=== PATIENT | female | born 1950 | race Caucasian/White ===

== ENCOUNTER 2017-04-03 09:59 | Observation (INO) | payer MEDICARE, MEDICAID ==
[~2017-04-03] VITALS: Ht 161.3 cm; Wt 103.1 kg
[2017-04-03] VITALS (9 sets, daily range): BP systolic 149–189; BP diastolic 57–74; PULSE 58–73; RESP 18–20; O2SAT 98–100
[~2017-04-03 09:59] MED LIST: ALBU8.5H2 IH; ASPI-628 PO; CHOL200025 PO; FENO48TA4 PO; GABA600T2 PO; INSU100I SUBQ; INSU100I13 SUBQ; IPRA0.2S51 IH; LEVO50TA6 PO; LORA1TAB PO; LOSA50TA37 PO; MAGN400C PO; MECL-107 PO; MEDICAL MARIJUANA IH; MELA5TAB14 PO; METF500T4 PO; OMEP40CA36 PO; OXYC1TAB24 PO; PIOG45TA PO; ROSU5TAB PO; [UNRECOGNIZED DRUG - CODE] PO; vitamin b12 INJ
[2017-04-03 10:28] LABS: BASOPHILS % (AUTO) 0.5 % (0-3); EOSINOPHILS % (AUTO) 1.1 % (0-5); MONOCYTES % (AUTO) 7.4 % (4-12); Mean Corpuscular Hemoglobin 29.2 pg (27.0-35.0); Mean Corpuscular Volume 87.5 fL (81-100); Platelet Count 185 bil/L (150-400)
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
[2017-04-03] MEDS ORDERED: Nitroglycerin 2% 1 Gm Ointment TOPICAL ONE (10:36)
[2017-04-03] MEDS ORDERED: Nitroglycerin 2% 1 Gm Ointment TOPICAL SCH (10:40)
--- NOTE | 2017-04-03 11:02 | DRSVH ---
PROCEDURE: X-RAY CHEST ONE VIEW, PORTABLE ([id number]) INDICATIONS: sob TECHNIQUE: One view of the chest was acquired. COMPARISON: [facility], CR, CHEST 2VW, 06/30/2014, 12:11. [facility], CR, CH EST 1VW (PORTABLE), 04/07/2014, 12:21. FINDINGS: Surgical changes and devices: None. Lungs and pleura: No pleural effusions or pneumothorax. Lungs are clear. Mediastinum: Mediastinal contours appear normal. Heart size is normal. Bones and chest wall: No suspicious bony lesions. Overlying soft tissues appear unremarkable. IMPRESSION: Mildly reduced inspiratory volume, source of shortness of breath is not seen. Dictated by: Magen Rodriguez M.D. on 04/03/2017 at 11:00 Approved by: Magen Rodriguez M.D. on 04/03/2017 at 11:00
[2017-04-03] MEDS ORDERED: GABA-502 PO (11:35)
[2017-04-03] MEDS ORDERED: PIOG15TA21 PO (11:35)
[2017-04-03] MEDS ORDERED: LORA10CA PO (11:42)
[2017-04-03] MEDS ORDERED: FOLI-89 PO (11:42)
[2017-04-03] MEDS ORDERED: FERR325C PO (11:42)
[2017-04-03] MEDS ORDERED: [UNRECOGNIZED DRUG - CODE] PO (11:42)
[2017-04-03] MEDS ORDERED: CYCL1DRO OP (11:42)
[2017-04-03] MEDS ORDERED: SODI15DR6 BOTH_EYES (11:42)
[2017-04-03] MEDS ORDERED: Multivit-Miner-Folic Acid-Iron Tablet PO SCH ×2 (12:00→17:30)
[2017-04-03 12:33] LABS: TROPONIN T < 0.010 ug/L (0.0-0.011)
[2017-04-03 12:36] LABS: Magnesium 1.3 mg/dL (1.6-2.6)
[2017-04-03] MEDS ORDERED: Magnesium Sulf 2 Gm/50mL Water 2 GM in IV Premix 1 EACH IV ONE (12:45)
[2017-04-03] MEDS ORDERED: Alum-Mag Hydrox-Simeth 30 mL Suspension PO PRN ×2 (13:30→14:55)
[2017-04-03] MEDS ORDERED: Ondansetron 2 mg/mL 2 mL Inj IVPUSH PRN ×2 (13:30→14:55)
[2017-04-03] MEDS ORDERED: Insulin ASPART 70/30 FlexPen 300 Unit/3 mL Inj SUBQ ONE (13:40)
[2017-04-03] MEDS ORDERED: ASPI81TA3 PO (13:49)
[2017-04-03] MEDS ORDERED: BUPR150T12 PO (13:49)
[2017-04-03] MEDS ORDERED: MECL-114 PO (13:50)
[2017-04-03] MEDS ORDERED: Atropine 1 mg/10 mL (Code) Syringe IVPUSH PRN (14:55)
[2017-04-03] MEDS ORDERED: Senna-Docusate 8.6-50 mg Tablet PO PRN (14:55)
[2017-04-03] MEDS ORDERED: Polyethylene Glycol (PEG) 17 Gm Powder PO PRN (14:55)
[2017-04-03] MEDS ORDERED: Dextrose 10% 250 ML IV PRN (15:05)
--- NOTE | 2017-04-03 15:20 | PCM.HPMED ---
Subjective Date of Service April 03, 2017 Primary Provider: Admitting Physician: Karime Tomas MD Primary Care Physician: Magen Pizarro DO Attending Physician: Karime Tomas MD Chief Complaint: Shortness of breath and chest pain History of Present Illness: This past week has been quite stressful as she is going to court to remove someone from her home. When she is most stressed she develops 10 out of 10 chest pain and this resolves after when or occasionally 2 sublingual nitroglycerin tablets. Prior to this past week she had been using nitroglycerin less than once per month. These rest recent chest pains are not coming on with activity. Then this morning she was awakened at 3:30 by shortness of breath. She removed her CPAP and walked to the kitchen and back and shortness of breath improved and she was able to sleep. She was then awakened from sleep again at 0540 morning with shortness of breath. As usual she is sleeping with the head of the bed elevated +2 kg. She tried her inhaler but no relief. She later tried her nebulizer but still no relief. Her caregiver arrived at 0825 and she got dressed and they went to urgent care clinic. By the time she she had 8 out of 10 left mid chest pressure. She says they did an EKG and gave her aspirin and then had an ambulance bring her to the emergency department. She is not sure if she received sublingual nitroglycerin. By arrival in the emergency department and the chest pressure was down to a 3 out of 10 in severity. She then received Nitrol paste and since then her discomfort is relieved although she does now have a headache. Review of Systems: she had a sinus infection for which she was prescribed amoxicillin 2 weeks ago and symptoms have improved. She has a small patch of rash on the anterior lower right leg for which she has received some corticosteroid cream but it has not been helping. Does occasionally get pedal edema right worse than left but has not been recently any different. Otherwise review of systems is unremarkable except as in history of present illness. Allergies Coded Allergies: milnacipran (Unverified Adverse Reaction, Severe, Agitation, 02/03/15) codeine (Verified Adverse Reaction, Intermediate, sedation, 02/03/15) duloxetine (Verified Adverse Reaction, Intermediate, Dizziness, 02/03/15) hydromorphone (Verified Adverse Reaction, Intermediate, Nausea,Vomiting, 4 /2/15) lisinopril (Verified Adverse Reaction, Intermediate, facial swelling, ) pregabalin (Verified Adverse Reaction, Intermediate, dizziness, 02/03/15) morphine (Verified Adverse Reaction, Mild, doesn't like how it makes her feel - sedation, n/v, 02/03/15) Home Medications Albuterol inhaler when necessary Nebulizer when necessary Aspirin 81 mg daily EpiPen 300 mg 3 times a day Lantus insulin 35 units at bedtime NovoLog before meals, 9 before breakfast, 5 before lunch, 8 before dinner and then these are adjusted by sliding scale (Copy of the sliding scale which is somewhat complicated was given to pharmacist who will enter it in her medication orders) Levothyroxine 50 g daily losartan 50 mg daily (has taken this today) metformin 500 mg twice a day Prilosec 40 mg daily Actos 15 mg daily Crestor 5 mg daily Flovent 110, 2 puffs twice daily Incruse 1 puff daily Fosamax weekly Restasis 0.5 and drop each eye every 12 hours NOEMY 128/5 1 drop each eye at bedtime PMH Arteriosclerotic coronary artery disease S/P 3 drug-eluting stents to RCA in 2005 following an IN Hyperlipidemia. Hypertension. Osteoporosis. Fibromyalgia. Asthma/COPD Atrial fibrillation (but EKG with NSR today) Low back pain. Diabetes mellitus. History of diverticulitis. Depression. Anxiety/stress reaction. GERD. Irritable bowel disease. Menorrhagia. Mild renal insufficiency, chronic stage III. Hypothyroidism Choledococholelithiasis. Surgical History Appendectomy in 2014 Total hysterectomy 1979 Tubal ligation 1974 Sinus surgery 3 in 1979 Carpal tunnel release 1989 Right hip surgery 2012 Left ankle surgery with ganglion cyst removal 3 in 2012 Family History Brother with IN Brother with ankylosing spondylitis Father of prostate cancer Mother and maternal grandmother with arrhythmias but no IN Maternal aunt with skin cancer Paternal uncle with leukemia Social History Hx Alcohol Use: Yes (rare) Hx Substance Use: Yes (legal marijuana each bedtime) Hx Tobacco Use: Yes Smoking Status: Current Every Day Smoker, Former Smoker (crit December 2016) Additional Information , lives with , and son and has caregiver for part of the day. Has POLST Exam Vital Signs Vital Sign - Last Date Time Temp Pulse Resp B/P Pulse Ox O2 Delivery O2 Flow Rate FiO2 04/03/17 14:15 36.6 65 18 177/65 99 Room Air Exam General: Alert and oriented, no acute distress HEENT: Unremarkable Neck: Carotids 2+, no JVD Heart: Regular Lungs: Clear Abdomen: Soft, non-tender Extremities: No pedal edema Lab and Diagnostics Result Diagram: 04/03/17 1025 04/03/17 1025 X-Rays, CTs and MRIs Chest x-ray with no acute abnormality 12-lead ECG Normal sinus rhythm, no acute ischemic changes seen. Assessment & Plan 67-year-old woman with known coronary artery disease, history of past IN and stents, now presents with 2 episodes of shortness of breath awakening her from sleep early this morning, also increased nitroglycerin use the past week due to increased stress. # Awakening with shortness of breath, this does not appear to be CHF or her COPD /asthma. Concern is that it may be an anginal equivalent especially as she did develop chest pressure and eating and has had significant increase in her nitroglycerin use this past week - Monitor overnight on telemetry - Serial troponin - So she is unable to walk on treadmill so will order a nuclear medicine with pharmacological stress for tomorrow if troponins negative -Continue her aspirin - Continue the nitro paste - Heart rate is around 60 so no beta santy given, especially if she is having stress test tomorrow # Hypertension not well controlled but may be due to her anxiety - We will recheck a bit later this afternoon as it may have improved once she is able to relax in her room, if not consider additional medication, especially in the face of possible increasing angina # Type II diabetes mellitus - Because she will likely be nothing by mouth for tomorrow's cardiac chest pain will decrease her Lantus this time from 35 units to 20 units - Continue her usual NovoLog sliding scale, because it is quite complicated the pharmacist is entering this as well as her Lantus and associated orders # Other chronic medical problems appear stable, continue usual medications Karime Tomas MD April 03, 2017 15:20
[2017-04-03] MEDS: Nitroglycerin 2% 1 Gm Ointment TOPICAL SCH ×2 (15:30→20:30)
[2017-04-03 15:42] LABS: Creatine Kinase 87 U/L (21-215)
[2017-04-03] MEDS ORDERED: SODIUM CHLORIDE 5% BOTH_EYES PRN (16:40)
[2017-04-03] MEDS: Insulin LISPRO Individual-Dose Scale SUBQ SCH ×2 (17:48→22:00)
[2017-04-03] MEDS: Sodium Chloride LOK Flush 10 mL Syringe IVFLUSH SCH (17:48)
[2017-04-03] MEDS: 0.9% Sodium Chloride 1,000 ML IV SCH (17:49)
[2017-04-03] MEDS ORDERED: ALBU2.5V4 INHALATION (18:26)
[2017-04-03] MEDS ORDERED: UMEC62.5 IH (18:26)
[2017-04-03] MEDS ORDERED: FLUT12AE8 IH (18:26)
[2017-04-03] MEDS ORDERED: ALBU18HF INH (18:26)
--- NOTE | 2017-04-03 19:00 | NUR ---
Case Management: YISSEL explained to patient at 1810, all questions answered. Signed original placed in chart, copy given to patient. Pt refused the Medicare Part D Drug info. Antonina Ha RN
[2017-04-03] MEDS ORDERED: Albuterol 2.5 mg/3 mL Inhalation Solution NEB PRN (20:00)
[2017-04-03] MEDS ORDERED: Ipratropium 0.02% 0.5 mg/2.5 mL Inhalation Solution NEB PRN (20:30)
[2017-04-03] MEDS: Cyclosporine (Restasis) 1 DROP BOTH_EYES SCH (20:30)
[2017-04-03] MEDS ORDERED: Insulin GLARgine 100 Unit/mL Syringe SUBQ SCH (21:00)
[2017-04-03 21:30] LABS: Creatine Kinase 66 U/L (21-215)
[2017-04-03] MEDS: buPROPion SR 150 mg ER12 Tablet PO SCH (21:32)
[2017-04-04] VITALS (7 sets, daily range): BP systolic 155–188; BP diastolic 65–72; PULSE 57–65; RESP 18; O2SAT 97–98
[2017-04-04] MEDS: Sodium Chloride LOK Flush 10 mL Syringe IVFLUSH SCH ×2 (00:30→12:24)
[2017-04-04] MEDS: Nitroglycerin 2% 1 Gm Ointment TOPICAL SCH ×4 (00:30→12:30)
[2017-04-04] MEDS ORDERED: Pantoprazole 40 mg ER24 Tablet PO SCH (06:30)
[2017-04-04 06:34] LABS: BASOPHILS % (AUTO) 0.5 % (0-3); EOSINOPHILS % (AUTO) 2.5 % (0-5); MONOCYTES % (AUTO) 9.7 % (4-12); Mean Corpuscular Hemoglobin 28.6 pg (27.0-35.0); Mean Corpuscular Volume 88.5 fL (81-100); NEUTROPHILS % (AUTO) 56.3 % (40-74); Platelet Count 162 bil/L (150-400)
[2017-04-04] MEDS: 0.9% Sodium Chloride 1,000 ML IV SCH (06:37)
[2017-04-04 06:55] LABS: Magnesium 1.6 mg/dL (1.6-2.6)
[2017-04-04] MEDS ORDERED: Omega-3 Fatty Acids 1,000 mg Capsule PO SCH (08:30)
[2017-04-04] MEDS: Cyclosporine (Restasis) 1 DROP BOTH_EYES SCH (08:30)
--- NOTE | 2017-04-04 09:07 | NUR ---
Off to [facility] Pt off unit on wc, on RA, IV-SL for chem stress test. Pt denies pain. tele made aware. Addendum: 04/04/17 at 1219 by LISANDRA ALVES RN Pt back to unit at 1150. Denies pain. VSS. back on tele.
[2017-04-04] MEDS: Insulin LISPRO Individual-Dose Scale SUBQ SCH ×2 (12:00→12:23)
[2017-04-04] MEDS: buPROPion SR 150 mg ER12 Tablet PO SCH (12:22)
--- NOTE | 2017-04-04 12:36 | NUR ---
BG-lunch Pt refused to have AC BG checked at lunch time d/t having had a snack in CV[facility] post test. 4 units given still, per orders. Verified by Genia Gilliam RN.
--- NOTE | 2017-04-04 14:39 | PCM.DC.MED ---
Discharge Summary Date of Service Apr 04, 2017 Dates of Hospitalization Date of Hospital Admission April 03, 2017 at 13:35 Date of Discharge: Apr 04, 2017 Providers: Admitting Physician: Karime Tomas MD Primary Care Physician: Magen Pizarro DO Attending Physician: Karime Tomas MD Diagnosis at Time of Discharge Diagnosis at Time of Discharge Acute shortness of breath, noncardiac Hypertension Diabetes mellitus type II Procedures XRay, CTs & MRIs Chest x-ray with no acute abnormality ECG 12 Lead Normal sinus rhythm, no acute ischemic changes seen. Other Diagnostics PROCEDURE: 1 DAY PHARMACOLOGICAL STRESS TEST Rest and pharmacological stress myocardial perfusion SPECT with gated imaging and ejection fraction Left ventricle function: Gated images demonstrate normal left ventricular wall thickening. No segmental wall motion abnormalities. On visual inspection, no transient ischemic dilation. Left ventricle resting end diastolic volume is 109 mL. Left ventricle stress ejection fraction is 65%; normal range is above 45%. Resting LV ejection fraction 63%. Myocardial perfusion: Stress supine, resting supine images were compared to each other. Please note that this patient does not have any prone images. The patient has predominantly fixed, small-sized, mildly decreased perfusion of distal anterior wall, extending into the distal anteroseptum as well as heterogeneous mildly decreased perfusion of basal inferior wall and inferoapex. I do not see any obvious reversible ischemia. IMPRESSION: 1. No obvious reversible ischemia. 2. Patient has above-mentioned predominantly fixed perfusion defect. Those segments are moving normally. They have preserved contractility. It goes against the diagnosis of previous transmural myocardial infarction. The patient has a breast shadow as well as increased subdiaphragmatic activity. Likely we are dealing with breast tissue as well as diaphragmatic tissue attenuation artifact causing above-mentioned fixed defect. This patient does not have any prone images. Her weight is 226 pounds. She had perfusion study in April 2014. At that time also patient has fixed apical perfusion defect. On stress test EKG I do not see any obvious pathological Q-waves suggestive of previous transmural myocardial infarction. However, one cannot rule out entirely possibility of small nontransmural myocardial infarction in those areas. Clinical correlation is recommended. Dictated by: Rajan Horton M.D. on 04/04/2017 at 14:16 Brief History As per admission history of present illness by admitting physician, " This past week has been quite stressful as she is going to court to remove someone from her home. When she is most stressed she develops 10 out of 10 chest pain and this resolves after when or occasionally 2 sublingual nitroglycerin tablets. Prior to this past week she had been using nitroglycerin less than once per month. These rest recent chest pains are not coming on with activity. Then this morning she was awakened at 3:30 by shortness of breath. She removed her CPAP and walked to the kitchen and back and shortness of breath improved and she was able to sleep. She was then awakened from sleep again at 0540 morning with shortness of breath. As usual she is sleeping with the head of the bed elevated +2 kg. She tried her inhaler but no relief. She later tried her nebulizer but still no relief. Her caregiver arrived at 0825 and she got dressed and they went to urgent care clinic. By the time she she had 8 out of 10 left mid chest pressure. She says they did an EKG and gave her aspirin and then had an ambulance bring her to the emergency department. She is not sure if she received sublingual nitroglycerin. By arrival in the emergency department and the chest pressure was down to a 3 out of 10 in severity. She then received Nitrol paste and since then her discomfort is relieved although she does now have a headache. " Hospital Course # Awakening with shortness of breath, this does not appear to be CHF or her COPD /asthma. Concern is that it may be an anginal equivalent especially as she did develop chest pressure and eating and has had significant increase in her nitroglycerin use this past week - Monitored overnight on telemetry without acute events demonstrated - Serial troponin were unremarkable - Home medications continued heart rate was stable of 60s. - Patient was noted to be stable overnight, demonstrated no recurrence of chest pains or shortness of breath. Following cardiac stress test in a.m. patient was able to walk laps around the hospital floor without exacerbation of symptoms. I react stress test did demonstrate some fixed defects in the apical region however no reversible changes and overall was a low risk study. Patient was relieved by findings discharged home with no acute changes in medication regime. - Follow-up with primary care doctor in 1-2 weeks for further evaluation and discussion of hospital stay. # Hypertension not well controlled but may be due to her anxiety - Blood pressure remained elevated in sub-optimal control, especially in the setting of known heart disease, improved BP control is needed - Pt's Losartan increased to 100mg from 50mg with plan to FU in 1-2 weeks. Pt will continue to monitor BP and will consider FU lab studies with increased dosage to monitor renal and electrolyte levels. # Type II diabetes mellitus -Stable during hospital stay patient restarted on home medications at discharge Exam Vital Signs (Last) Date Time Temp Pulse Resp B/P Pulse Ox O2 Delivery O2 Flow Rate FiO2 04/04/17 13:46 36.7 57 18 158/72 97 Room Air Test 04/03/17 10:25 04/03/17 20:32 04/04/17 06:20 Hemoglobin A1c 5.9% (4.8-5.6) Total Bilirubin 0.2mg/dL (0.0-1.2) Aspartate Amino Transf (AST/SGOT) 14U/L (0-50) Alanine Aminotransferase (ALT/SGPT) 13U/L (0-32) Alkaline Phosphatase 65U/L (25-165) Total Protein 7.2g/dL (6.4-8.4) Albumin 3.9g/dL (3.4-5.0) Thyroid Stimulating Hormone (TSH) 1.970uIU/mL (0.450-4.500) Total Creatine Kinase 66U/L (21-215) Creatine Kinase MB 1.8ng/mL (0.0-5.3) Creatine Kinase MB % % (0.0-5.0) Troponin T 0.010ug/L (0.0-0.011) White Blood Count 6.4th/mm3 (3.8-10.1) Red Blood Count 3.92mil/mm3 (3.90-5.20) Hemoglobin 11.2g/dL (12.0-15.6) Hematocrit 34.7% (35.0-46.0) Mean Corpuscular Volume 88.5fL (81-100) Mean Corpuscular Hemoglobin 28.6pg (27.0-35.0) Mean Corpuscular Hemoglobin Concent 32.3% (32.0-37.0) Red Cell Distribution Width 14.7% (12.3-15.4) Platelet Count 162bil/L (150-400) Neutrophils (%) (Auto) 56.3% (40-74) Lymphocytes (%) (Auto) 30.7% (14-46) Monocytes (%) (Auto) 9.7% (4-12) Eosinophils (%) (Auto) 2.5% (0-5) Basophils (%) (Auto) 0.5% (0-3) Sodium Level 144mEq/L (134-144) Potassium Level 4.0mEq/L (3.5-5.2) Chloride Level 107mEq/L (97-108) Carbon Dioxide Level 23mmol/L (18-29) Blood Urea Nitrogen 23mg/dL (8-27) Creatinine 0.93mg/dL (0.57-1.00) Estimat Glomerular Filtration Rate 86mL/min (>59) Glucose Level 162mg/dL (60-99) Calcium Level 8.7mg/dL (8.5-10.1) Magnesium Level 1.6mg/dL (1.6-2.6) Triglycerides Level 200mg/dL (0-149) Cholesterol Level 102mg/dL (100-199) LDL Cholesterol, Calculated 34.000mg/dL (0-99) VLDL Cholesterol 40.000mg/dL HDL Cholesterol 28mg/dL (>39) Cholesterol/HDL Ratio 3.64 (0.0-4.4) General: Alert, Oriented X3, Cooperative, No Acute Distress Mouth: Mucous Membr Moist/Brea Chest & Lungs: Clear to auscultation & percussion Cardiovascular: Regular Rate/Rhythm Extremities: No cyanosis/clubbing/edma bilat Neurological: Grossly Neurologically Intact Discharge Medications Discharge Medications ([Medical Marijuana]) IH HS (Reported) Aspirin Chew (Aspirin Chew) 81 Mg Chew 81 MG PO QAM (Reported) Bupropion ER (Bupropion ER) 150 Mg Tablet.er 150 MG PO BID (Reported) Cholecalciferol (Vitamin D3) (Vitamin D3) 2,000 Unit Tablet 2,000 UNIT PO Q48 ( Reported) alternates with fish oil Cyclosporine (Restasis) 1 Each Droperette 1 DROP OP BID (Reported) Fenofibrate Nanocrystallized (Fenofibrate) 48 Mg Tablet 48 MG PO DAILY (Reported ) Ferrous Sulfate (Iron) 325 Mg Capsule.er 325 MG PO DAILYWL (Reported) Fluticasone Propionate (Flovent HFA 110 mcg) 12 Gm Aer.w.adap 2 PUFFS IH BID ( Reported) Folic Acid/Multivits-Min/Lut (Multi-Vitamin Gummies) 1 Each Tab.chew 1 EACH PO QAM (Reported) Gabapentin (Gabapentin) 300 Mg Capsule 300 MG PO TID (Reported) Insulin Aspart (NovoLOG U-100 Pen) 100 Unit/Ml Insuln.pen SUBQ SS (Reported) prescribed as: 9 units in AM 5 units at noon 8 units at dinner time adjust above dosing according to sliding scale (up or down) Insulin Glargine (Lantus U100 Solostar Insulin Pen) 100 Unit/1 Ml Insuln.pen 35 UNIT SUBQ QPM-INSULIN (Reported) prescribed 58 units qpm, pt. takes 38 units hs Ipratropium Five Points (Ipratropium Five Points Inhalant Solution) 0.2 Mg/1 Ml Solution 0.5 MG IH BID (Reported) Levothyroxine (Levothyroxine) 50 Mcg Tablet 50 MCG PO QAM (Reported) Loratadine (Claritin) 10 Mg Capsule 10 MG PO QAM (Reported) Losartan Potassium (Losartan Potassium) 100 Mg Tablet 100 MG PO DAILY Prescribed by: AUGUSTUS BAEZ DO Magnesium Oxide (Magnesium) 400 Mg Capsule 400 MG PO DAILY (Reported) Melatonin (Melatonin) 5 Mg Tablet 5 MG PO HS (Reported) Metformin (Metformin) 500 Mg Tablet 500 MG PO BIDWM (Reported) [place]-3/Dha/Epa/Fish Oil (Fish Oil 1,000 mg Softgel) 1,000 Mg (120 Mg-180 Mg) Capsule 1,000 MG PO Q48H (Reported) ALTERNATES WITH VIT D Omeprazole (Omeprazole) 40 Mg Capsule.dr 40 PO QAM (Reported) Pioglitazone (Pioglitazone) 15 Mg Tablet 15 MG PO QAM (Reported) Rosuvastatin Calcium (Crestor) 5 Mg Tablet 5 MG PO HS (Reported) Umeclidinium Five [place] (Incruse Ellipta) 62.5 Mcg/Actuation Blst.w.dev 62.5 MCG IH DAILY (Reported) As needed Albuterol HFA (Proair HFA) 8.5 Gm Hfa.aer.ad 2 PUFFS IH Q4 PRN PRN For Shortness of Breath (Reported) Albuterol Neb Soln (Albuterol Neb Soln) 2.5 Mg/3 Ml Vial.neb 2.5 MG INHALATION Q4H PRN PRN For Shortness of Breath (Reported) Albuterol Sulfate (Ventolin HFA Inhaler) 200 Puff/18 Gm Inhaler 1 PUFF INH Q4 PRN PRN For Wheezing (Reported) Meclizine (Bonine) 25 Mg Tab.chew 25 MG PO TID PRN PRN For Nausea/Vomiting ( Reported) Sodium Chloride (Nam-128) 15 Ml Drops 1 DROP BOTH_EYES Q2H PRN PRN DRY EYES ( Reported) Followup Plan Follow-up with PCP in: 1 week Time spent 45 minutes copies to: [facility] Vital Signs Vital Sign - Last Date Time Temp Pulse Resp B/P Pulse Ox O2 Delivery O2 Flow Rate FiO2 04/04/17 13:46 36.7 57 18 158/72 97 Room Air Intake and Output 04/03/17 04/03/17 04/04/17 Cumulative From/Thru 15:00 23:00 07:00 04/03/17 10:12 - 04/04/17 06:10 Intake Total 436 ml 1450 ml 1886 ml Output Total 200 ml 1150 ml 1350 ml Balance 236 ml 300 ml 536 ml Intake Oral 436 ml 550 ml 986 ml IV Total 900 ml 900 ml Output Urine Total 200 ml 1150 ml 1350 ml # Bowel Movements 0 0 Lab and Diagnostics Result Diagram: 04/04/1761904/04/17619 Augustus Baez DO Apr 04, 2017 14:39
--- NOTE | 2017-04-04 14:43 | PCM.DIMED ---
Discharge Instructions Date of Service Apr 04, 2017 Dates of Hospitalization April 03, 2017 at 13:35 Discharge Diagnosis Discharge Diagnosis Acute shortness of breath, noncardiac Hypertension Diabetes mellitus type II Diet Discharge Diet: Heart Healthy, Diabetic Activity Discharge Activity: Limited until seen by PCP Call your provider Call your provider for: Fever or Chills, Shortness of breath, Chest pain Patient Instructions Patient Instructions Hospital studies demonstrate no evidence of an acute coronary syndrome, or Heart Attack You may return home, I recommend moderate activity at first do not overexert himself should you experience chest pain or severe shortness of breath. Follow-up with primary care physician within one week if possible for further evaluation and discussion of his hospital stay, and further treatment. Follow-up Provider: Magen Pizarro, DO Follow-up with PCP in: 1 week Augustus Baez DO Apr 04, 2017 14:43
[2017-04-04] MEDS ORDERED: LOSA100T29 PO (15:03)
--- NOTE | 2017-04-04 15:29 | DRSVH ---
PROCEDURE: 1 DAY PHARMACOLOGICAL STRESS TEST Rest and pharmacological stress myocardial perfusion SPECT with gated imaging and ejection fraction RADIOPHARMACEUTICAL: 15.5 mCi Tc-99m tetrofosmin IV at rest and 44.9 mCi Tc-99m tetrofosmin IV at pe ak effect of pharmacological stress. A oik-ynh-pdlrojgw was performed. INDICATIONS: CHEST PAIN, HISTORY OF STENTS TECHNIQUE: Radiopharmaceutical was injected at peak stress test, and also at rest. SPECT images wer e obtained. SPECT myocardial perfusion images were displayed in short axis, horizontal long axis, an d vertical long axis views. Gated images were reviewed using [employer] software. COMPARISON: None. CARDIAC STRESS: A pharmacologic stress test was performed under the supervision of an attending lisseth key, using an infusion of Lexiscan as per protocol. Hemodynamic data: There is normal blood pressure and heart rate response to pharmacologic stress. Symptoms: The patient had dyspnea, mild cramping during Lexiscan infusion. Aminophylline: No aminophylline was given. EKG: Baseline rhythm was sinus with diffuse repolarization changes. Stress EKG did not reveal any n ew convincing significant inducible ischemic changes. There were some occasional PVCs without any cordero stained ventricular tachycardia. FINDINGS: Raw data: There is a breast shadow seen. There is increased subdiaphragmatic activity. Left ventricle function: Gated images demonstrate normal left ventricular wall thickening. No segme ntal wall motion abnormalities. On visual inspection, no transient ischemic dilation. Left ventricl e resting end diastolic volume is 109 mL. Left ventricle stress ejection fraction is 65%; normal ran ge is above 45%. Resting LV ejection fraction 63%. Myocardial perfusion: Stress supine, resting supine images were compared to each other. Please note that this patient does not have any prone images. The patient has predominantly fixed, small-sized, mildly decreased perfusion of distal anterior wall, extending into the distal anteroseptum as well a s heterogeneous mildly decreased perfusion of basal inferior wall and inferoapex. I do not see any o bvious reversible ischemia. IMPRESSION: 1. No obvious reversible ischemia. 2. Patient has above-mentioned predominantly fixed perfusion defect. Those segments are moving nanci lly. They have preserved contractility. It goes against the diagnosis of previous transmural myocar dial infarction. The patient has a breast shadow as well as increased subdiaphragmatic activity. Betzaida ruiz we are dealing with breast tissue as well as diaphragmatic tissue attenuation artifact causing a kvng-mentioned fixed defect. This patient does not have any prone images. Her weight is 226 pounds. She had perfusion study in April 2014. At that time also patient has fixed apical perfusion defect. On stress test EKG I do not see any obvious pathological Q-waves suggestive of previous transmural myocardial infarction. However, one cannot rule out entirely possibility of small nontransmural myoc ardial infarction in those areas. Clinical correlation is recommended. Dictated by: Rajan Horton M.D. on 04/04/2017 at 14:16 Transcribed by: PAOLA on 04/04/2017 at 18:29 Approved by: Rajan Horton M.D. on 04/04/2017 at 16:28
--- NOTE | 2017-04-04 15:50 | NUR ---
Discharge Pt d/c home with caregiver at 1540 via wc by DAVID. Discharge info discussed with pt, pt denied having questions. Was anxious to leave, having stated in the AM after stress test that regardless of test,was going to leave today. IV and tele d/c All personal belongings left with pt.
--- NOTE | 2017-04-04 17:08 | NUR ---
Social Work: Initial Assessment / Discharge Data: Pt is a 67 y/o female admitted for chest pain. Pt's PCP is Dr Pizarro, pt's insurance is Medicare with [facility] supp. EMR reviewed. Readmit score is 4, high. [employer]ING [employer]ACHINE [employer] met with pt at bedside, role explained. Pt states she lives in [place] with her in a single story home with a ramp to enter. Pt uses a walker a baseline and a CPAP. Pt does no drive, has hx of HH, no hx of SNF, no LTC or VA benefits. Pt has [facility] 53 hours per month with Ifeoma Grant as embedded case manager. UR specialist faxed clinicals to [facility] embedded case manager. No d/c planning needs at this time. [employer] will continue to follow if needs arise. Assessment: Pt with [facility]. Plan: Pt discharged home via POV with family today with [facility]. No d/c planning needs at this time. [employer] will continue to follow if needs arise. CONNOR Webb Addendum: 04/04/17 at 1711 by JOSE ANGEL CASEY Amended: Links added.
== END 2017-04-04 15:47 | disposition home or self-care (01) ==
LOC: SED 09:59 → EDBD 09:59 → MPC 13:35
PROVIDERS: ADMIT Internal Medicine; ATTEND Internal Medicine
DX: R06.02 Shortness of breath (principal); I10 Essential (primary) hypertension; E11.21 Type 2 diabetes mellitus with diabetic nephropathy; R07.9 Chest pain, unspecified; R06.00 Dyspnea, unspecified; I25.10 Atherosclerotic heart disease of native coronary artery without angina pectoris; N28.9 Disorder of kidney and ureter, unspecified; E78.5 Hyperlipidemia, unspecified; I48.91 Unspecified atrial fibrillation; K21.9 Gastro-esophageal reflux disease without esophagitis; F41.8 Other specified anxiety disorders; E03.9 Hypothyroidism, unspecified; M79.7 Fibromyalgia; J44.9 Chronic obstructive pulmonary disease, unspecified; M19.90 Unspecified osteoarthritis, unspecified site; F17.210 Nicotine dependence, cigarettes, uncomplicated; Z96.641 Presence of right artificial hip joint; Z90.710 Acquired absence of both cervix and uterus; Z79.4 Long term (current) use of insulin; Z95.5 Presence of coronary angioplasty implant and graft; Z88.8 Allergy status to other drugs, medicaments and biological substances; Z79.82 Long term (current) use of aspirin; Z79.84 Long term (current) use of oral hypoglycemic drugs
CPT/HCPCS: 36415; 71010; 78452; 80048; 80053; 80061; 82550; 82553; 82948; 83036; 83735; 84443; 84484; 85025; 93005; 93017; 94664; 96374; 99285; A4300; A9502; G0378; G0463; J1815; J2785; J7030

== ENCOUNTER 2017-05-17 07:18 | Day surgery (SDC) | payer MEDICARE, MEDICAID ==
[~2017-05-17] VITALS: Ht 160 cm; Wt 97.5 kg
[~2017-05-17 07:18] MED LIST changes: +0.9% Sodium Chloride 1,000 ML IV SCH; +ALBU18HF INH; -ALBU8.5H2 IH; +ALEN40TA2 PO; -ASPI-628 PO; +ASPI-973 PO; -CHOL200025 PO; +CHOL200047 PO; +CYCL1DRO OCULAR; +CYCL5TAB PO; +DIPH25CA6 PO; -FENO48TA4 PO; +FLUT10.62 IH; +FLUT16SP NS; +FLUT1AER IH; +GABA-502 PO; -GABA600T2 PO; +HYDR25TA4 PO; +INSU100C8 SUBQ; -INSU100I SUBQ; -INSU100I13 SUBQ; +INSU100V7 SUBQ; -IPRA0.2S51 IH; +LINA145C PO; +LORA-302 PO; +LORA10CA9 PO; -LORA1TAB PO; +LOSA100T29 PO; -LOSA50TA37 PO; +Lactated Ringer's 1,000 ML IV ONE; +MAGN100T5 PO; -MAGN400C PO; -MECL-107 PO; +MECL-114 PO; -MEDICAL MARIJUANA IH; +MELA1TAB16 PO; -MELA5TAB14 PO; +NITR0.4T6 SL; +OMEG-38 PO; -OXYC1TAB24 PO; +PIOG15TA21 PO; -PIOG45TA PO; +Sodium Chloride LOK Flush 10 mL Syringe IV PRN; +VIT1TABL83 PO; -[UNRECOGNIZED DRUG - CODE] PO; +fentaNYL-PF 50 mCg/mL 2 mL Inj IVPUSH PRN; -vitamin b12 INJ
[2017-05-17] MEDS ORDERED: Ondansetron 2 mg/mL 2 mL Inj ONE (07:19)
[2017-05-17] MEDS ORDERED: Ketamine 10 mg/mL 20 mL Inj ONE (07:19)
[2017-05-17] MEDS ORDERED: Propofol 10,000 mCg/mL 20 mL Inj ONE (07:19)
[2017-05-17 07:40] VITALS: BP 146/60; PULSE 66; RESP 16; O2SAT 96
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
[2017-05-17 08:39] VITALS: BP 127/74; PULSE 73; RESP 16; O2SAT 100
[2017-05-17 08:49] VITALS: BP 115/70; PULSE 78; RESP 16; O2SAT 100
--- NOTE | 2017-05-17 09:00 | PCM.ANEP1 ---
Post Anesthesia PACU Phase 1 Assessment Date of Service: May 17, 2017 Vital Signs Vital Signs Date Time Temp Pulse Resp B/P Pulse Ox O2 Delivery O2 Flow Rate FiO2 05/17/17 08:49 78 16 115/70 100 Room Air 05/17/17 08:39 36 73 16 127/74 100 Room Air 05/17/17 07:40 36.3 66 16 146/60 96 Room Air Anesthetic Administered: TIVA Level of Alertness: Awake, talking KENT's with Equal Strength: Yes Pain: No Pain Scale Score: 0 Nausea or Vomiting: No CV Function & Hydration Stable: Yes Airway Device: none in PACU Oxygen Delivery: Room Air Lungs: Diminished, Wheezes (MILD) Summary 05/17/17 08:49 78 16 115/70 100 Room Air PACU Phase 2 Assessment Complications: No Follow up Care: N/A Patient Instructions Provided: N/A Fran Amaya MD May 17, 2017 09:00
--- NOTE | 2017-05-17 09:36 | ENDO ---
[address] [address] ENDOSCOPY PROCEDURE PATIENT: REBECAC BRITO : 1950 MR#: [id number] ADMIT: 05/17/2017 JOB ID: [id number] DATE: 05/17/2017 PROCEDURE: Colonoscopy. INDICATION: Patient with a personal history of colon polyps. Patient's ASA classification, Mallampati score, medications as per Dr. Fran Amaya's anesthesia report. INSTRUMENT USED: [id number]. PREPARATION QUALITY: Good. PROCEDURE DETAILS: After informed consent was obtained, the patient was brought into the GI suite, where she was placed on oxygen via nasal cannula and monitored with continuous pulse oximeter, telemetry, and blood pressure monitoring. A time-out was performed. Then, she was placed in a left lateral decubitus position. Medications were administered for sedation. Digital rectal exam was performed and was unremarkable. Colonoscope was then inserted into the rectum and advanced under direct visualization to the cecum, which was identified by the presence of the ileocecal valve and appendiceal orifice. Once the cecum was reached, the colonoscope was withdrawn back to the rectum. Mucosa and lumen were examined. In the rectum, retroflexion was performed. Following retroflexion and the rectum was suctioned, the procedure was completed. FINDINGS: 1. Scattered diverticula were seen throughout the sigmoid colon. 2. In the sigmoid colon, there was additionally a 4 mm sessile polyp that we attempted to remove with a cold snare; however, this was only partially successful. The remnant of the polyp was removed with cold biopsy forceps. 3. In the ascending colon, there was an approximately 6 mm submucosal lesion that had a yellowish hue. Using cold biopsy forceps, this was probed and a pillow sign was exhibited. This was suggestive of a lipoma. IMPRESSION: 1. Sigmoid polyp. 2. Ascending colon lipoma. 3. Left-sided diverticulosis. RECOMMENDATIONS: 1. Repeat colonoscopy in five years. 2. Fiber rich diet. 3. Follow up in GI clinic as needed. COMPLICATIONS: None. ESTIMATED BLOOD LOSS: Less than 5 mL.
--- NOTE | 2017-05-21 14:34 | PATH ---
SURGICAL PATHOLOGY Attending Physician:Nolan Hong CASE STATUS: Signed Out PATIENT NAME: REBECCA BRITO PID: [id number] : 1950 DATE COLLECTED:05/17/2017 15:36 SPECIMEN: Colon, Polyp CLINICAL HISTORY: 1). SIGMOID POLYP FINAL DIAGNOSIS: 1.SIGMOID COLON, POLYP, BIOPSY: PORTIONS OF HYPERPLASTIC POLYP X2. ICD10 K63.5 GROSS DESCRIPTION: The specimen is received in one formalin filled container labeled with the patient's name, sublabeled "sigmoid colon polyp" and consists of 2 portions of tissue which aggregate to 0.2 x 0.2 x 0.2 CM. The specimen is entirely submitted in one cassette. 05/17/2017DC MICRO DESCRIPTION: See diagnosis. ICD-9 CODES: CPT CODES: 1: 49004 Electronically Signed Out Elana Cheng MD [facility] [address], [place] [address] Technical component performed at [facility], [facility] [address], [address]
== END 2017-05-17 23:59 | disposition home or self-care (01) ==
LOC: END 07:18
PROVIDERS: ATTEND Internal Medicine Gastroenterology
DX: Z12.11 Encounter for screening for malignant neoplasm of colon (principal); Z86.010 Personal history of colon polyps; K63.5 Polyp of colon; D17.79 Benign lipomatous neoplasm of other sites; K57.30 Diverticulosis of large intestine without perforation or abscess without bleeding; I10 Essential (primary) hypertension; I25.10 Atherosclerotic heart disease of native coronary artery without angina pectoris; I48.91 Unspecified atrial fibrillation; E11.9 Type 2 diabetes mellitus without complications; E78.5 Hyperlipidemia, unspecified; R20.1 Hypoesthesia of skin; M81.0 Age-related osteoporosis without current pathological fracture; M79.7 Fibromyalgia; J45.909 Unspecified asthma, uncomplicated; K58.2 Mixed irritable bowel syndrome; F32.9 Major depressive disorder, single episode, unspecified; E66.01 Morbid (severe) obesity due to excess calories; Z95.5 Presence of coronary angioplasty implant and graft; Z79.4 Long term (current) use of insulin; Z79.82 Long term (current) use of aspirin; Z79.84 Long term (current) use of oral hypoglycemic drugs; Z87.891 Personal history of nicotine dependence; Z68.41 Body mass index [BMI] 40.0-44.9, adult
CPT/HCPCS: 45385; J2250; J2405; J7120